=== PATIENT | female | born 1945 | race African-American/Black ===

== ENCOUNTER → 2020-05-21 | Outpatient (CLI) | payer OTHER, BC ==
[~2020-05-21] VITALS: Ht 162.6 cm; Wt 81.6 kg
[~2020-05-21] MED LIST: CARVEDILOL6.25 M1 PO; CATAPRES0.1 MG PO; HUMALOG100 UNIT/2 SUBQ; LEVEMIR100 UNIT/1 SUBQ; LEVOCETIRIZINE D5 MG PO; LIPITOR10 MG PO; NEURONTIN 300M300 M2 PO; NORVASC 2.5 MG2.5 M1 PO; RENAL CAPS SOFTG1 MG PO; RENVELA0.8 GM PO; RENVELA800 MG PO; SENSIPAR 30 MG30 M1 PO; VITAMIN D3 COM1 EACH PO; VITAMIN D325 MC1 PO
== END | disposition home or self-care (01) ==
LOC: GI
PROVIDERS: ATTEND Internal Medicine Gastroenterology
DX: Z12.11 Encounter for screening for malignant neoplasm of colon (principal); K64.8 Other hemorrhoids; I12.0 Hypertensive chronic kidney disease with stage 5 chronic kidney disease or end stage renal disease; E11.22 Type 2 diabetes mellitus with diabetic chronic kidney disease; N18.9 Chronic kidney disease, unspecified; E78.00 Pure hypercholesterolemia, unspecified; E78.5 Hyperlipidemia, unspecified; N18.6 End stage renal disease; D63.1 Anemia in chronic kidney disease; Z98.890 Other specified postprocedural states; Z79.899 Other long term (current) drug therapy; Z90.710 Acquired absence of both cervix and uterus; Z20.828 Contact with and (suspected) exposure to other viral communicable diseases; Z99.2 Dependence on renal dialysis
CPT/HCPCS: 62110; 62900